=== PATIENT | female | born 2000 | race Caucasian/White ===

== ENCOUNTER 2022-06-10 10:16 | Emergency (ER) | payer OTHER ==
[~2022-06-10] VITALS: Ht 160 cm; Wt 72.6 kg
[~2022-06-10 10:16] MED LIST: [UNRECOGNIZED DRUG - OTHER]
[2022-06-10] MEDS ORDERED: KETO10TA2 PO (12:34)
[2022-06-10] MEDS ORDERED: NORFLEX100MG PO (12:34)
== END 2022-06-10 13:52 | disposition home or self-care (01) ==
LOC: ER 10:16
DX: M54.2 Cervicalgia (principal); Z91.018 Allergy to other foods